=== PATIENT | female | born 1965 | race African-American/Black ===

== ENCOUNTER 2017-12-22 08:47 | Emergency (ER) | payer MEDICAID ==
[2017-12-22 08:56] VITALS: BP 181/82
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
--- NOTE | 2017-12-22 10:45 | ASMTCMCOM ---
CM Note CM Note Notes: Chart reviewed. Attempted to meet with patient but she left before being discharged. High risk screen completed re narcotic caution. See ER report 12/22/17 Date Signed: 12/22/2017 10:44 AM Electronically Signed By:Joann Lou RN
== END 2017-12-22 09:50 | disposition left against medical advice (07) ==
LOC: EEVIPCON 08:47
DX: M54.5 Low back pain (principal); G89.29 Other chronic pain

== ENCOUNTER 2018-02-05 17:13 | Emergency (ER) | payer MEDICAID ==
[2018-02-05] MEDS ORDERED: METOCLOPRAMIDE 10 MG/2 ML VIAL IVP ONE (18:40)
[2018-02-05] MEDS ORDERED: NS 1,000 ML IV ONE (18:40)
[2018-02-05] MEDS ORDERED: PROMETHAZINE HCL 25 MG/ML INJ IVP ONE (18:40)
--- NOTE | 2018-02-05 18:40 | EDPHY ---
General - History Smoking Status: Former smoker Time Seen by Provider: 02/05/18 18:14 Narrative: CHIEF COMPLAINT: Everything HISTORY OF PRESENT ILLNESS: Patient presents by private vehicle with complaints of "everything." She states that she has had cough, runny nose, sinus congestion, chest congestion, nausea, vomiting diarrhea. This started Monday. Constant duration. Worse with intake by mouth. Minimal improvement with p. O.. She has also tried NyQuil, Tylenol, ibuprofen. She has no chest pain, but she describes it as a chest pressure that she only associates with her cough. No exertional component. No neck pain or stiffness. No fever. She does have a mild sore throat. She has no urinary complaints. Some generalized body aches and chills. No other associated complaints or modifying factors. REVIEW OF SYSTEMS: 10 systems were reviewed and negative with the exception of the elements mentioned in the history of present illness. PCP: [facility] SPECIALISTS: None currently PAST MEDICAL HISTORY: Diabetes without insulin use, chronic pain PAST SURGICAL HISTORY: No recent surgical history SOCIAL HISTORY: Nonsmoker. Lives independently. Works in retail at [employer] HISTORY: Noncontributory EXAMINATION: Vitals: Triage VS reviewed General Appearance: Alert, no distress. [place]. Conversing in full sentences without muffled voice. Head: normocephalic, atraumatic Eyes: Pupils equal and round, mild conjunctival injection without pallor or subconjunctival hemorrhage. EOM symmetric ENT, Mouth: Mucous membranes moist uvula midline. Tonsils are symmetrically enlarged without any exudate, erythema or compromise of the airway. Neck: Normal inspection, supple, non-tender. No crepitus. No meningismus or rigidity. Respiratory: Lungs are clear to auscultation Cardiovascular: Regular rate and rhythm. No murmur Gastrointestinal: Abdomen is soft and nontender Back: non-tender, no bony abnormalities Neurological: A&O, nonfocal, normal gait Skin: Warm and dry, no rash no petechiae or purpura Extremities: Nontender, no pedal edema Psychiatric: Mood and affect normal DIFFERENTIAL DIAGNOSES: Including but not limited to upper respiratory infection, lower respiratory infection, pneumonia, influenza, dehydration, hypoglycemia, sinusitis MDM: 6:15 p.m. Multiple symptoms consistent with upper and lower respiratory infections. She does have a viral syndrome appearance. She has no chest pain. Vital signs are within normal limits. She is in no acute distress. I have ordered laboratory studies, chest x-ray and symptomatic medications. 7:20 p.m. CBC, chemistry, lipase, liver function are all within normal limits with no significant abnormalities. Influenza test is pending. Chest x-ray as read by Radiology, consistent with airway disease without evidence of pneumonia. Urinalysis pending. Patient re-evaluated. She is feeling much better. 7:45 p.m. Urinalysis does reveal evidence of urinary tract infection. She is not meet criteria for pyelonephritis, nor does she clinically correlate for this. We discussed discharge home with [place] as she has anaphylactic reaction to penicillin and thinks that she does not tolerate Keflex. We discussed follow up with primary care physician later this week. We discussed symptomatic medications, which I have written down for her. She is comfortable this plan. She is well-appearing and discharged home stable condition SUPERVISION: This patient was independently evaluated without direct involvement of or examination by the attending physician. CONSULTATION: None (Bruce Tejeda) Medical Decision Making: I did not see this patient while she was in the emergency department. However her care was discussed with the PA while the patient was in the department. I agree with treatment plan and management (Emir Sarabia) - Diagnostics Imaging Results: Imaging Impressions Chest X-Ray 02/05/18 18:41 Impression: Airways disease. No pneumonia. - Objective Vital Signs: Initial Vital Signs Temperature (C) 37 C 02/05/18 17:18 Heart Rate 71 02/05/18 17:18 Respiratory Rate 18 02/05/18 17:18 Blood Pressure 153/92 H 02/05/18 17:18 O2 Sat (%) 97 02/05/18 17:18 O2 Delivery Mode Room Air Allergies/Adverse Reactions: Penicillins Allergy (Verified 02/05/18 17:16) Home Medications: Medication Instructions Recorded Dextromethorphan Polistirex 30 mg PO BID PRN #1 btl 02/05/18 [Delsym] Metformin HCl 02/05/18 Nitrofurantoin Monohyd/M-Cryst 100 mg PO BID #14 capsule 02/05/18 [Macrobid 100 mg Capsule] guaiFENesin [Mucinex] 1,200 mg PO BID #30 tab.er.12h 02/05/18 predniSONE [Deltasone] 60 mg PO DAILY #9 tablet 02/05/18 Laboratory Results: Laboratory Results 02/05/18 18:19 02/05/18 18:19 02/05/18 02/05/18 02/05/18 19:50 18:19 18:19 WBC RBC Hgb Hct MCV MCH MCHC RDW Plt Count MPV Neut % (Auto) Lymph % (Auto) Kinney % (Auto) Eos % (Auto) Baso % (Auto) Nucleat RBC Rel Count Absolute Neuts (auto) Absolute Lymphs (auto) Absolute Monos (auto) Absolute Eos (auto) Absolute Basos (auto) Absolute Nucleated RBC Immature Gran % Immature Gran # Sodium 140 mEq/L mEq/L (135-145) Potassium 3.5 mEq/L mEq/L (3.3-5.0) Chloride 104 mEq/L mEq/L (97-110) Carbon Dioxide 26 mEq/l mEq/l (22-31) Anion Gap 10 mEq/L mEq/L (6-14) BUN 12 mg/dL mg/dL (7-23) Creatinine 0.6 mg/dL mg/dL (0.6-1.0) Estimated GFR > 60 Glucose 95 mg/dL mg/dL (70-100) Calcium 9.4 mg/dL mg/dL (8.5-10.4) Total Bilirubin 0.4 mg/dL mg/dL (0.1-1.4) Conjugated Bilirubin 0.2 mg/dL mg/dL (0.0-0.5) Unconjugated Bilirubin 0.2 mg/dL mg/dL (0.0-1.1) AST 25 IU/L IU/L (14-46) ALT 34 IU/L IU/L (9-52) Alkaline Phosphatase 81 IU/L IU/L (38-126) Total Protein 7.4 g/dL g/dL (6.3-8.2) Albumin 4.3 g/dL g/dL (3.5-5.0) Lipase 74 IU/L IU/L (23-300) Urine Color YELLOW Urine Appearance CLEAR Urine pH 6.0 (5.0-7.5) Ur Specific [place] 1.010 (1.002-1.030) Urine Protein NEGATIVE (NEGATIVE) Urine Ketones NEGATIVE (NEGATIVE) Urine Blood 1+ H (NEGATIVE) Urine Nitrate NEGATIVE (NEGATIVE) Urine Bilirubin NEGATIVE (NEGATIVE) Urine Urobilinogen NEGATIVE EU EU (0.2-1.0) Ur Leukocyte Esterase 3+ H (NEGATIVE) Urine RBC 15-25 /hpf H /hpf (0-3) Urine WBC 25-50 /hpf H /hpf (0-3) Ur Epithelial Cells 1+ /lpf /lpf (NONE-1+) Ur Renal Epithelial Cell TRACE /hpf H /hpf (NONE SEEN) Urine Mucus TRACE /lpf /lpf (NONE-1+) Urine Glucose NEGATIVE (NEGATIVE) Nasal Influenza A PCR NEGATIVE FOR FLU A (NEGATIVE) Nasal Influenza B PCR NEGATIVE FOR FLU B (NEGATIVE) 02/05/18 18:19 WBC 8.27 10^3/uL 10^3/uL (3.80-9.50) RBC 4.24 10^6/uL 10^6/uL (4.18-5.33) Hgb 12.7 g/dL g/dL (12.6-16.3) Hct 38.0 % % (38.0-47.0) MCV 89.6 fL fL (81.5-99.8) MCH 30.0 pg pg (27.9-34.1) MCHC 33.4 g/dL g/dL (32.4-36.7) RDW 14.5 % % (11.5-15.2) Plt Count 218 10^3/uL 10^3/uL (150-400) MPV 10.4 fL fL (8.7-11.7) Neut % (Auto) 62.7 % % (39.3-74.2) Lymph % (Auto) 26.2 % % (15.0-45.0) Kinney % (Auto) 9.3 % % (4.5-13.0) Eos % (Auto) 1.6 % % (0.6-7.6) Baso % (Auto) 0.1 % L % (0.3-1.7) Nucleat RBC Rel Count 0.0 % % (0.0-0.2) Absolute Neuts (auto) 5.18 10^3/uL 10^3/uL (1.70-6.50) Absolute Lymphs (auto) 2.17 10^3/uL 10^3/uL (1.00-3.00) Absolute Monos (auto) 0.77 10^3/uL 10^3/uL (0.30-0.80) Absolute Eos (auto) 0.13 10^3/uL 10^3/uL (0.03-0.40) Absolute Basos (auto) 0.01 10^3/uL L 10^3/uL (0.02-0.10) Absolute Nucleated RBC 0.00 10^3/uL 10^3/uL (0-0.01) Immature Gran % 0.1 % % (0.0-1.1) Immature Gran # 0.01 10^3/uL 10^3/uL (0.00-0.10) Sodium Potassium Chloride Carbon Dioxide Anion Gap BUN Creatinine Estimated GFR Glucose Calcium Total Bilirubin Conjugated Bilirubin Unconjugated Bilirubin AST ALT Alkaline Phosphatase Total Protein Albumin Lipase Urine Color Urine Appearance Urine pH Ur Specific [place] Urine Protein Urine Ketones Urine Blood Urine Nitrate Urine Bilirubin Urine Urobilinogen Ur Leukocyte Esterase Urine RBC Urine WBC Ur Epithelial Cells Ur Renal Epithelial Cell Urine Mucus Urine Glucose Nasal Influenza A PCR Nasal Influenza B PCR Medications Given: Discontinued Medications Albuterol/Ipratropium (Duoneb) 3 ml IH EDNOW ONE Stop: 02/05/18 18:42 Last Admin: 02/05/18 19:07 Dose: 3 ml Sodium Chloride (Ns) 1,000 mls @ 0 mls/hr IV EDNOW ONE; Wide Open PRN Reason: Protocol Stop: 02/05/18 18:41 Last Admin: 02/05/18 19:08 Dose: 1,000 mls Metoclopramide HCl (Reglan Injection) 10 mg IVP EDNOW ONE Stop: 02/05/18 18:41 Last Admin: 02/05/18 19:07 Dose: 10 mg Nitrofurantoin (Macrobid 100mg Prepack#2) 1 btl TAKEHOME EDNOW ONE PRN Reason: Protocol Stop: 02/05/18 20:29 Last Admin: 02/05/18 20:43 Dose: 1 btl Promethazine HCl (Phenergan) 12.5 mg IVP EDNOW ONE Stop: 02/05/18 18:41 Last Admin: 02/05/18 19:08 Dose: 12.5 mg Departure - Departure Disposition: Home, Routine, Self-Care Clinical Impression: Acute upper respiratory infection Acute bronchitis Qualifiers: Bronchitis organism: unspecified organism Qualified Code(s): J20.9 - Acute bronchitis, unspecified Nausea & vomiting Qualifiers: Vomiting type: unspecified Vomiting Intractability: non-intractable Qualified Code(s): R11.2 - Nausea with vomiting, unspecified UTI (urinary tract infection) Qualifiers: Urinary tract infection type: acute cystitis Hematuria presence: with hematuria Qualified Code(s): N30.01 - Acute cystitis with hematuria Condition: Good Instructions: Nitrofurantoin Combination (By mouth), Upper Respiratory Infection (ED), Acute Bronchitis (ED) Additional Instructions: 1. Prednisone as prescribed for the next 3 days 2. Mucinex as prescribed for mucous production 3. Dextromethorphan cough medicine as prescribed as needed 4. Continue your ibuprofen and Tylenol [id number] as needed 5. Continue increase fluid intake 6. Contact primary care physician to be seen in the next 48 hr for repeat evaluation 7. Return to emergency department for any worsening symptoms, chest pain, persistent fever, neck pain or stiffness, headache Referrals: ANGIE DUNN [Other] - As per Instructions Prescriptions: Dextromethorphan Polistirex [Delsym] 30 mg PO BID PRN #1 btl PRN Reason: Cough, Mild guaiFENesin [Mucinex] 1,200 mg PO BID #30 tab.er.12h Nitrofurantoin Monohyd/M-Cryst [Macrobid 100 mg Capsule] 100 mg PO BID #14 capsule predniSONE [Deltasone] 60 mg PO DAILY #9 tablet
[2018-02-05] MEDS ORDERED: IPRATROPIUM/ALBUTEROL 3 ML DEYVIAL IH ONE (18:41)
[2018-02-05 18:48] LABS: PLATELET COUNT 218 10^3/uL (150-400)
[2018-02-05] MEDS ORDERED: NITROFURANTOIN 100MG PREPACK#2 BTL TAKEHOME ONE (20:28)
[2018-02-05 20:47] VITALS: BP 152/93
== END 2018-02-05 20:46 | disposition home or self-care (01) ==
DX: J20.9 Acute bronchitis, unspecified (principal); R11.2 Nausea with vomiting, unspecified; N30.01 Acute cystitis with hematuria; J06.9 Acute upper respiratory infection, unspecified; E86.9 Volume depletion, unspecified
CPT/HCPCS: 96374; J2550; J2765

== ENCOUNTER 2018-06-10 11:26 | Emergency (ER) | payer OTHER, MEDICAID ==
[2018-06-10 11:35] VITALS: BP 146/87
[2018-06-10] MEDS ORDERED: IPRATROPIUM/ALBUTEROL 3 ML DEYVIAL IH ONE (12:39)
--- NOTE | 2018-06-10 12:42 | EDPHY ---
H & P Stated Complaint: continuing problems with cough/sob Time Seen by Provider: 06/10/18 12:10 HPI/ROS: CHIEF COMPLAINT: Cough, sore throat, fever, achy muscles HISTORY OF PRESENT ILLNESS: This is a 53-year-old female in general good health who presents with 4-5 days of cough, congestion, sore throat, and body aches. She has had an influenza vaccination this year. She has been treating herself with [id number] medications but has become concerned about the persistence of her cough and congestion. She is concerned because she feels exhausted. REVIEW OF SYSTEMS: A ten system review of systems was performed and is negative with the exception of the items mentioned in the HPI. She reports chronic low back pain. Past medical history: Negative Social history: She works at [employer]. She does not use tobacco products. General Appearance: Alert. Vital signs reviewed. Blood pressure 146/87, respiratory rate 18, temperature 36.8 degrees, room air oxygen saturation 98%. Eyes: Pupils equal and round, no conjunctival injection, no discharge. Anicteric. ENT, Mouth: Mucous membranes are moist, no oropharyngeal erythema or edema. Neck: No lymphadenopathy, supple. Respiratory: Lungs slightly distant but with equal breath sounds, no wheezes, rales, or rhonchi. Cardiovascular: Regular rate and rhythm; no murmur, rub, or gallop. Gastrointestinal: Abdomen is obese, soft and nontender, no masses or organomegaly, bowel sounds normal. Skin: Warm and dry, no rashes on exposed skin, normal color. Back: Nontender to palpation over the thoracolumbar spine. No CVAT. Extremities: No lower extremity edema, no calf tenderness or swelling. Neurological: Alert and oriented. Moving all four extremities easily and equally. Psychiatric: Normal affect. - Personal History LMP (Females 10-55): Post Menopausal Current Tetanus Diphtheria and Acellular Pertussis (TDAP): Yes - Medical/Surgical History Hx Asthma: No Hx Chronic Respiratory Disease: No Hx Diabetes: Yes Hx Cardiac Disease: No Hx Renal Disease: No Hx Cirrhosis: No Hx Alcoholism: No Hx HIV/AIDS: No Hx Splenectomy or Spleen Trauma: No Other PMH: Surgery: none. Medical: Chronic back pain-disc problems - Social History Smoking Status: Former smoker Constitutional: Initial Vital Signs Temperature (C) 36.8 C 06/10/18 11:30 Heart Rate 77 03/10/19 11:30 Respiratory Rate 18 06/10/18 11:30 Blood Pressure 146/87 H 06/10/18 11:30 O2 Sat (%) 98 06/10/18 11:30 O2 Delivery Mode Room Air Allergies/Adverse Reactions: Penicillins Allergy (Verified 06/10/18 11:29) Home Medications: Medication Instructions Recorded Dextromethorphan Polistirex 30 mg PO BID PRN #1 btl 02/05/18 [Delsym] Metformin HCl 02/05/18 guaiFENesin [Mucinex] 1,200 mg PO BID #30 tab.er.12h 02/05/18 Albuterol [Proventil Inhaler HFA 1 - 2 puffs IH Q4 #1 mdi 06/10/18 (*)] HYDROcodone/HOMATROPINE HYCODA 1 tsp PO Q4-6PRN PRN #120 ml 06/10/18 [Hycodan Syrup (*)] Medical Decision Making ED Course/Re-evaluation: Patient with signs and symptoms of influenza. She has been ill for 3-4 days. I did not recommend influenza testing and I do not recommend Tamiflu in this setting. She asked about antibiotics and I explained that I did not think they would be helpful. She was given a DuoNeb here--after stating that she had received 1 in the past with good results. I discussed symptomatic treatment with her. I wrote her prescription for cough Medication and recommended Afrin nasal spray along with antipyretics. After receiving her DuoNeb she left the emergency department without receiving any prescriptions or discharge instructions. I did not see her again, as she was no longer in her room. At no time did I suspect PE. She had no evidence of pneumonia on physical exam. I did not think that her symptoms were cardiac in etiology. Differential Diagnosis: Shortness of breath including but not limited to pulmonary infectious process, COPD, asthma, pulmonary embolus and congestive heart failure. - Data Points Medications Given: Discontinued Medications Albuterol/Ipratropium (Duoneb) 3 ml IH EDNOW ONE Stop: 06/10/18 12:40 Last Admin: 06/10/18 12:46 Dose: 3 ml Departure - Departure Disposition: Home, Routine, Self-Care Clinical Impression: Influenza Condition: Good Instructions: Influenza (ED) Additional Instructions: You have the signs and symptoms of influenza. Antibiotics will not help this disease. Try to stay well hydrated. Continue with Tylenol and ibuprofen in alternating doses. I recommend that you try some Afrin nasal spray to dry up your nasal passages and relieve some of the congestion. Do not use it for more than 3 days and follow the instructions on the package. I am writing a prescription for cough medicine in for an inhaler to use up to 4 times a day if needed for shortness of breath. Adult Pain & Fever Control: We recommend Acetaminophen (Tylenol) and Ibuprofen (Motrin,Advil) for pain and fever control. When fever is high or pain severe, both drugs can be used at the same time, but at different intervals. Please note the time differences. Your dose is: Acetaminophen 650mg every 4 to 6 hours Ibuprofen 400mg every 6 hours with food OR Note: do not take Acetaminophen with Hydrocodone (Vicodin, Lortab) or Oycodone (Percocet). These medications also contain Acetaminophen. No more than 3000mg of Acetaminophen should be taken in 24 hours (for an adult). Referrals: SHELLEY BACON [Primary Care Provider] - As per Instructions Prescriptions: Albuterol [Proventil Inhaler HFA (*)] 1 - 2 puffs IH Q4 #1 mdi HYDROcodone/HOMATROPINE HYCODA [Hycodan Syrup (*)] 1 tsp PO Q4-6PRN PRN #120 ml PRN Reason: Cough, Moderate
== END 2018-06-10 13:04 | disposition home or self-care (01) ==
DX: J10.1 Influenza due to other identified influenza virus with other respiratory manifestations (principal); Z87.891 Personal history of nicotine dependence; Z88.0 Allergy status to penicillin

== ENCOUNTER → 2018-07-31 | Outpatient (CLI) | payer MEDICAID | LOC: FIMAGING 08:43 | PROVIDERS: ATTEND Family Medicine | DX: Z12.31 Encounter for screening mammogram for malignant neoplasm of breast (principal) ==